=== PATIENT | female | born 1995 | race Caucasian/White ===

== ENCOUNTER 2019-03-19 13:35 | Emergency (ER) | payer OTHER ==
[2019-03-19 13:45] VITALS: BP 131/57; TEMP 98; BMI 29.5
--- NOTE | 2019-03-19 14:20 | PDOC ---
History of Present Illness - General Chief Complaint: Pain Stated Complaint: CHEST PAIN Time Seen by Provider: 03/19/19 14:03 History Source: Patient Exam Limitations: No Limitations - History of Present Illness Initial Comments: 03/19/19 14:14 HISTORY OF PRESENT ILLNESS: Is a 23-year-old otherwise healthy young lady who presents to the emergency department for evaluation of chest pain which woke her from sleep last night. Patient was unsure if she had a bad dream but noted that she woke up with diffuse chest tightness and shortness of breath which progressively got worse over period of 15 to 20 minutes. Patient reports the symptoms subsided enough that she was able to try to go to sleep but was not able to get a full rest throughout the night. Patient's woke up this morning she continued pain and tightness in her chest. She denies any shortness of breath, audible wheezing, fevers, chills, oral contraceptive use, recent travel or leg swelling. No recent travel or sick contacts. PAST MEDICAL HISTORY: Denies past medical history SURGICAL HISTORY: Denies ALLERGIES: No known drug allergies REVIEW OF SYSTEMS General/Constitutional: Denies fever or chills. Denies weakness, weight change. HEENT: Denies change in vision. Denies ear pain or discharge. Denies sore throat. Cardiovascular: See HPI Respiratory: Denies cough, wheezing, or hemoptysis. Gastrointestinal: Denies nausea, vomiting, diarrhea or constipation. Denies rectal bleeding. Genitourinary: Denies dysuria, frequency, or change in urination. Musculoskeletal: Denies joint or muscle swelling or pain. Denies neck or back pain. Skin and breasts: Denies rash or easy bruising. Neurologic: Denies headache, vertigo, loss of consciousness, or loss of sensation. Psychiatric: Denies depression or anxiety. Endocrine: Denies increased thirst. Denies abnormal weight change. Hematologic/Lymphatic: Denies anemia, easy bleeding, or history of blood clots. Allergic/Immunologic: Denies hives or skin allergy. Denies latex allergy. PHYSICAL EXAM General Appearance: Well-appearing, appropriately dressed. No apparent distress , no intoxication. HEENT: EOMI, PERRLA, normal ENT inspection, normal voice, TMs normal, pharynx normal. No conjunctival pallor. No photophobia, scleral icterus. Neck: Supple. Trachea midline. No tenderness, rigidity, carotid bruit, stridor , lymphadenopathy, or thyromegaly. Respiratory/Chest: Lungs CTAB. No shortness of breath, chest tenderness, respiratory distress, accessory muscle use. No crackles, rales, rhonchi, stridor , wheezing, dullness Cardiovascular: RRR. S1, S2. No JVD, murmur, bradycardia, tachycardia. Vascular Pulses: Dorsalis-Pedis (R): 2+, Dorsalis-Pedis (L): 2+ Gastrointestinal/Abdominal: Normal bowel sounds. Abdomen soft, non-distended. No tenderness or rebound tenderness. No organomegaly, pulsatile mass, guarding, hernia, hepatomegaly, splenomegaly. Lymphatic: No adenopathy, tenderness. Musculoskeletal/Extremities: Normal inspection. FROM of all extremities, normal capillary refill. Pelvis Stable. No CVA tenderness. No tenderness to extremities, pedal edema, swelling, erythema or deformity. Integumentary: Appropriate color, dry, warm. No cyanosis, erythema, jaundice or rash Neurologic: flake drier II-XII intact. Fully oriented, alert. Appropriate mood/affect. Motor strength 5/5. No appreciable EOM palsy, facial droop or sensory deficit. Past History - Past Medical History Allergies/Adverse Reactions: Allergies Allergy/AdvReac Type Severity Reaction Status Date / Time No Known Allergies Allergy Verified 03/19/19 13:45 Home Medications: Ambulatory Orders NK [No Known Home Medication] 03/19/19 COPD: No - Psycho Social/Smoking Cessation Hx Smoking History: Never smoked *Physical Exam - Vital Signs Last Vital Signs Temp Pulse Resp BP Pulse Ox 98 F 74 16 131/57 L 100 03/19/19 13:38 03/19/19 18:44 03/19/19 18:44 03/19/19 13:38 03/19/19 18:44 ED Treatment Course - LABORATORY CBC & Chemistry Diagram: 03/19/19 14:27 03/19/19 14:27 - ADDITIONAL ORDERS Additional order review: Laboratory Results 03/19/19 03/19/19 03/19/19 14:30 14:27 14:27 D-Dimer 538 H Sodium 138 Potassium 3.8 Chloride 108 H Carbon Dioxide 25 Anion Gap 5 L BUN 11.5 Creatinine 0.5 L Est GFR (CKD-EPI)AfAm 160.35 Est GFR (CKD-EPI)NonAf 138.35 Random Glucose 90 Calcium 9.0 Total Bilirubin 0.2 AST 15 ALT 23 Alkaline Phosphatase 82 Creatine Kinase Creatine Kinase Index CK-MB (CK-2) Troponin I Total Protein 7.6 Albumin 4.0 Urine HCG, Qual Negative 03/19/19 14:27 D-Dimer Sodium Potassium Chloride Carbon Dioxide Anion Gap BUN Creatinine Est GFR (CKD-EPI)AfAm Est GFR (CKD-EPI)NonAf Random Glucose Calcium Total Bilirubin AST ALT Alkaline Phosphatase Creatine Kinase 161 Creatine Kinase Index No Result Required. CK-MB (CK-2) < 1.0 Troponin I < 0.02 Total Protein Albumin Urine HCG, Qual 03/19/19 14:27 RBC 4.29 MCV 83.8 MCHC 32.7 RDW 14.4 MPV 9.2 Neutrophils % 79.4 Lymphocytes % 15.8 Monocytes % 4.1 Eosinophils % 0.3 Basophils % 0.4 - RADIOLOGY Radiology Studies Ordered: Category Date Time Status CHEST CTA [CT] Stat CT Scan 03/19/19 15:17 Taken Medical Decision Making - Medical Decision Making 03/19/19 14:20 A/P: 23-year-old woman with chest tightness and shortness of breath starting last night Differential diagnosis includes but is not limited to-ACS, pneumonia, PE, GERD, anxiety, musculoskeletal pain Less likely ACS as patient is 23 without comorbidities and no family history of early cardiac disease. As patient is not coughing and is afebrile pneumonia is less likely. EKG Labs including cardiac profile and d-dimer Reassess 03/19/19 15:19 D-dimer of 538. Insert IV CTA of the chest to rule out pulmonary embolism. 03/19/19 19:09 CT scan is read by imaging on-call: No evidence of central pulmonary emboli on the study. Increased attenuation of the anterior mediastinal fat consistent with residual thymic tissue. Short-term follow-up chest CT with intravenous contrast is recommended to confirm stability. Scoliotic thoracic spine EKG sinus rhythm with rate of 76. Normal intervals present. QTc 452 ms. Normal axis. No ischemic changes noted. Discharge home I discussed the physical exam findings, ancillary test results and final diagnoses with the patient. I answered all of the patient's questions. The patient was satisfied with the care received and felt comfortable with the discharge plan and treatment plan. The patient will call their primary care physician within 24 hours to arrange follow-up and will return to the Emergency Department with any new, persistent or worsening symptoms. Discharge - Discharge Information Problems reviewed: Yes Clinical Impression/Diagnosis: Atypical chest pain Condition: Stable - Admission No - Follow up/Referral Referrals: Abdoulaye Noyola [Primary Care Provider] - - Patient Discharge Instructions Additional Instructions: Your emergency department visit is incomplete until you follow-up with your primary doctor. Take Atarax 25 mg every 6 hours as needed for anxiety. Return to the emergency department for any new or worsening symptoms. Thank you very much for choosing us to provide your emergent health care needs. - Post Discharge Activity
[2019-03-19 14:58] LABS: BASO % 0.4 % (0-2.0); EOS % 0.3 % (0-4.5); HEMOGLOBIN 11.8 GM/dL (10.7-15.3); LYMPH % 15.8 % (8-40); MCH 27.4 pg (25.7-33.7); MCHC 32.7 g/dl (32.0-36.0); MEAN CELL VOLUME 83.8 fl (80-96); MEAN PLT VOLUME 9.2 fl (7.5-11.1); MONO % 4.1 % (3.8-10.2); NEUT % 79.4 % (42.8-82.8); PLATELET COUNT 311 K/MM3 (134-434); RBC 4.29 M/mm3 (3.60-5.2); RDW 14.4 % (11.6-15.6); WHITE BLOOD COUNT 9.9 K/mm3 (4.0-10.0)
[2019-03-19 15:24] LABS: BILIRUBIN,TOTAL 0.2 mg/dL (0.2-1); BLOOD UREA NITROGEN 11.5 mg/dL (7-18); CREATININE 0.5 mg/dL (0.55-1.3); POTASSIUM 3.8 mmol/L (3.5-5.1); TOT PROT 7.6 g/dl (6.4-8.2)
[2019-03-19 18:44] VITALS: PULSE 74
--- NOTE | 2019-03-20 16:00 | EKG ---
Test Reason : Blood Pressure : / mmHG Vent. Rate : 076 BPM Atrial Rate : 076 BPM P-R Int : 164 ms QRS Dur : 096 ms QT Int : 402 ms P-R-T Axes : 046 051 039 degrees QTc Int : 452 ms NORMAL SINUS RHYTHM RSR' OR QR PATTERN IN V1 SUGGESTS RIGHT VENTRICULAR CONDUCTION DELAY BORDERLINE ECG NO PREVIOUS ECGS AVAILABLE Confirmed by ANDREA FREY MD ([id number]) on 03/20/2019 4:00:07 PM Referred By: Confirmed By:ANDRAE FREY MD
== END 2019-03-19 19:13 | disposition home or self-care (01) ==
LOC: JERFT 13:35 → JER 13:35 → JERFT 19:13
DX: R07.89 Other chest pain (principal)
CPT/HCPCS: 36415; 71275-TC; 80053; 82550; 82553; 84484; 84703; 85025; 85379; 93005; 93010; 99282-25